=== PATIENT | female | born 1945 | race Caucasian/White ===

== ENCOUNTER 2017-01-10 14:18 | Emergency (ER) | payer MEDICARE, MEDICAID ==
[2017-01-10 14:31] VITALS: BP 155/92
--- NOTE | 2017-01-10 15:12 | ERNOTE ---
Psychological HPI - Date Date of Service: 01/10/17 - General Chief Complaint: Anxiety Source: Reports: patient Exam Limitations: Reports: no limitations - Immun/Allergies/Home Medications Allergies/Adverse Reactions: Allergies bee pollen Allergy (Severe, Verified 01/10/17 14:31) HIVES, ANGIOEDEMA poison josefa extract [Poison Josefa Extract] Allergy (Unknown, Verified 01/10/17 14: 31) Home Medications: HOME MEDICATIONS Multivit-Min/FA/Lycopene/Lut [Centrum Silver Tablet] 1 each PO DAILY 09/29/13 [ Last Taken Unknown] Simvastatin 40 mg PO HS 09/29/13 [Last Taken Unknown] Albuterol Sulfate [Proair Hfa] 2 puff IH QID PRN 07/01/15 [Last Taken Unknown] Ascorbic Acid [Vitamin C] 500 mg PO DAILY 07/01/15 [Last Taken Unknown] Black Cohosh 540 mg PO DAILY 07/01/15 [Last Taken Unknown] Calcium Carbonate/Vitamin D3 [Calcium 600 + Vit D3 800 Tab] 1 each PO DAILY [Last Taken Unknown] EPINEPHrine [Epipen 2-Miguel] 0.3 mg IM ONCE PRN 07/01/15 [Last Taken Unknown] Esomeprazole Magnesium [Nexium] 40 mg PO DAILY 07/01/15 [Last Taken Unknown] Meclizine HCl [Antivert] 25 mg PO TID PRN 07/01/15 [Last Taken Unknown] PARoxetine HCL [Paxil] 10 mg PO DAILY 07/01/15 [Last Taken Unknown] HYDROcodone/ACETAMINOPHEN [[place] 5-325] 1 tab PO Q6H PRN #20 tab 09/30/15 [Last Taken Unknown] Losartan Potassium [Cozaar] 50 mg PO BID 11/14/15 [Last Taken Unknown] Escitalopram Oxalate [Lexapro] 10 mg PO DAILY #30 tab 01/10/17 [Last Taken Unknown] - History of Present Illness Narrative: Pt. comes in with c/o anxiety for two weeks. Pt. denies any SOB, CP, NVD, but does state that she always feels hungry and finds herself eating more when she is stressed out over a friend that she is trying to help right now. Pt. denies any NVD or abdominal pain, fevers, alleviating factors, or prehospital treatment but does state that she has been on medications in the past for anxiety and she states that she would take one and it would calm her down but has not been on anything daily. Time Seen by Provider: 01/10/17 14:37 Review of Systems - Review of Systems Constitutional: Present: no symptoms reported. Absent: recent illness, fever, chills, weakness, fatigue, malaise EYE: Present: no symptoms reported ENT: Present: no symptoms reported Respiratory: Present: no symptoms reported. Absent: shortness of breath, cough , wheezing Cardiology: Present: no symptoms reported. Absent: chest pain, palpitations, claudication Gastrointestinal/Abdominal: Present: no symptoms reported. Absent: nausea, vomiting, diarrhea, abdominal pain Genitourinary: Present: no symptoms reported Musculoskeletal: Present: no symptoms reported. Absent: back pain, joint pain Skin: Present: no symptoms reported Neurological: Present: anxiety. Absent: headache, dizziness/light-headedness, numbness, tingling All Other Systems: All systems neg except as marked - Patient's Past Medical History Patient History - Medical: GERD Patient History - Cardiac/Respiratory: Hypertension, Hyperlipidemia Patient History - Cancer: No Hx of Cancer Patient History - Surgical Procedures: Tubal Ligation Patient History - Other: None LMP (females 10-50): Menopausal - Family History Father Family History - Medical: Family History - Cardiac/Respiratory: Coronary Heart Disease, Hypertension Sister Family History - Medical: Diabetes Type 2 Family History - Cardiac/Respiratory: Hypertension Mother Family History - Medical: - Social History Living Situations: home Abuse History: No History of abuse Psych History: Hx of Anxiety - Immunizations Immunizations Up to Date: Yes Hx Pneumococcal Vaccination: No History of Influenza Vaccine: Yes Psychological Exam - Exam General Appearance: Present: wd/wn, alert, no apparent distress Head Exam: Present: normal inspection, no evidence of injury, no tenderness w palpation Neurological: Present: alert, normal mood/affect, calm, supervisor public message service II-XII nml as tested , oriented x 3 Thoughts/Hallucinations: Present: normal thought pattern, no apparent hallucination Behavior/Eye Contact/Speech: Present: cooperative, good eye contact, normal speech Eye Exam: Normal inspection: bilateral, PERRL: bilateral, EOMI: bilateral Ears, Nose, Throat: Present: normal ENT inspection, normal pharynx Neck: Present: normal inspection, nontender. Absent: lymphadenopathy (R), lymphadenopathy (L) Respiratory: Present: no respiratory distress, normal breath sounds, no accessory muscle use, chest nontender, lungs clear Cardiovascular/Chest: Present: regular rate, rhythm, no murmur, normal peripheral pulses Gastrointestinal/Abdominal: Present: normal bowel sounds, nontender, nondistended, soft, no organomegaly. Absent: McBurney sign, Obturator sign, Yeh sign, Psoas sign, mass Back Exam: Present: normal inspection Extremity Exam: Present: normal inspection Skin Exam: Present: normal color, warm/dry, no cyanosis. Absent: pallor, skin rash ED Progress - Vital Signs Patient's Vital Signs:: I have reviewed the patient's vital signs. Vital Signs: Vital Signs 01/10/17 01/10/17 14:26 14:42 Temperature 36.4 C L Pulse Rate 73 73 Respiratory 15 Rate Blood Pressure 155/92 O2 Sat by Pulse 96 Oximetry - Progress/Reassessment Chief Complaint: Anxiety Progress:: Unchanged Departure Clinical Impression: anxiety with chronic depression - Departure Disposition: Home self-care Condition: Good Instructions: Dysphoria, Binge-Eating Disorder Additional Instructions: Please follow meal plan as discussed and take lexapro everyday and follow up with psychiatry office for further treatment. Referrals: Brendan Martin MD [Primary Care Provider] - Prescriptions: Escitalopram Oxalate [Lexapro] 10 mg PO DAILY #30 tab
== END 2017-01-10 15:03 | disposition home or self-care (01) ==
LOC: ER 14:18
DX: F41.8 Other specified anxiety disorders (principal)

== ENCOUNTER 2017-03-11 11:10 | Emergency (ER) | payer MEDICARE, MEDICAID ==
--- NOTE | 2017-03-11 12:28 | ERNOTE ---
Psychological HPI - Date Date of Service: 03/11/17 - General Chief Complaint: Anxiety Source: Reports: patient Exam Limitations: Reports: no limitations - Immun/Allergies/Home Medications Allergies/Adverse Reactions: Allergies bee pollen Allergy (Severe, Verified 03/11/17 11:26) HIVES, ANGIOEDEMA poison josefa extract [Poison Josefa Extract] Allergy (Unknown, Verified 03/11/17 11: 26) Home Medications: HOME MEDICATIONS Simvastatin 40 mg PO HS 09/29/13 [Last Taken Unknown] EPINEPHrine [Epipen 2-Miugel] 0.3 mg IM ONCE PRN 07/01/15 [Last Taken Unknown] Losartan Potassium [Cozaar] 100 mg PO BID 11/14/15 [Last Taken Unknown] ALPRAZolam [Xanax] 0.25 mg PO TID PRN #16 tab 03/06/17 [Last Taken Unknown] Aspirin [Aspirin Chewable] 81 mg PO DAILY 03/06/17 [Last Taken Unknown] Bupropion HCl [Bupropion HCl ER] 150 mg PO 03/06/17 [Last Taken Unknown] clonazePAM [Klonopin] 0.5 mg PO HS 03/06/17 [Last Taken Unknown] hydrOXYzine HCL [Atarax] 25 mg PO HS 03/06/17 [Last Taken Unknown] Citalopram Hydrobromide [Citalopram HBr] 40 mg PO 03/11/17 [Last Taken Unknown] busPIRone HCL [Buspar] 5 mg PO BID #60 tablet 03/11/17 [Last Taken Unknown] - History of Present Illness Narrative: Pt. comes in with c/o increased anxiety for three days. Pt. states that she saw another provider three days ago and that she put her on another medication and that it did not improve the symptoms. Pt. denies any alleviating or aggravating factors. Pt. denies any prehospital treatment. Time Seen by Provider: 03/11/17 11:38 Arrived by: Reports: private car Onset/duration: Reports: better Intent: Reports: no prior thoughts-suicide, other - no suicidal ideation Situational Problems: Reports: significant other, work Associated Symptoms: Reports: agitated. Denies: suicidal thoughts, specific plan, made attempt Prior Treament: Reports: recently seen, treated by physician, similar symptoms before Review of Systems - Review of Systems Constitutional: Present: no symptoms reported. Absent: fever, chills, weakness , fatigue, malaise EYE: Present: no symptoms reported. Absent: double vision, vision changes ENT: Present: no symptoms reported. Absent: nose pain, nose congestion, nasal drainage, sore throat, throat swelling Respiratory: Present: no symptoms reported. Absent: shortness of breath, cough , wheezing Cardiology: Present: no symptoms reported. Absent: chest pain, edema Gastrointestinal/Abdominal: Present: no symptoms reported. Absent: nausea, vomiting, diarrhea Genitourinary: Present: no symptoms reported. Absent: frequency, decreased urinary output Musculoskeletal: Present: no symptoms reported. Absent: back pain, joint pain Skin: Present: no symptoms reported. Absent: rash, change in hair/nails Neurological: Present: no symptoms reported. Absent: headache, dizziness/light- headedness, numbness, tingling Endocrine: Present: no symptoms reported. Absent: intolerance to cold, increased hunger, increased thirst, increased urine All Other Systems: All systems neg except as marked - Patient's Past Medical History Patient History - Medical: Anxiety, Depression, GERD Patient History - Cardiac/Respiratory: Hypertension, Hyperlipidemia Patient History - Cancer: No Hx of Cancer Patient History - Surgical Procedures: Tubal Ligation Patient History - Other: None - Family History Father Family History - Medical: Family History - Cardiac/Respiratory: Coronary Heart Disease, Hypertension Sister Family History - Medical: Diabetes Type 2 Family History - Cardiac/Respiratory: Hypertension Mother Family History - Medical: - Social History Living Situations: alone Abuse History: No History of abuse Psych History: Hx of Anxiety, Hx of Depression Smoking Status: Never smoker Alcohol Use: none Drug Use: none - Immunizations Immunizations Up to Date: Yes Hx Pneumococcal Vaccination: No History of Influenza Vaccine: Yes Psychological Exam - Exam General Appearance: Present: wd/wn, alert, no apparent distress Head Exam: Present: normal inspection, no evidence of injury Neurological: Present: alert, calm, director of programming II-XII nml as tested, oriented x 3, anxious Behavior/Eye Contact/Speech: Present: cooperative, good eye contact, normal speech ENT Exam normal except (see below): Yes Respiratory: Present: no respiratory distress, normal breath sounds, no accessory muscle use, chest nontender, lungs clear Cardiovascular/Chest: Present: regular rate, rhythm, no murmur, normal peripheral pulses Extremity Exam: Present: normal inspection Skin Exam: Present: normal color, warm/dry, no cyanosis ED Progress - Date and Time Seen: Date and Time: 03/11/17 13:43 Pt. much improved on Buspar and am going to send urine for culture but not start pt. on any abx yet as micro was dirty catch. Will have pt. stop alprazolam. - Results and Orders Patient's Lab Results:: I have reviewed the patient's lab results. - Vital Signs Patient's Vital Signs:: I have reviewed the patient's vital signs. Vital Signs: Vital Signs 03/11/17 11:16 Pulse Rate 78 Respiratory 20 Rate Blood Pressure 125/77 O2 Sat by Pulse 98 Oximetry - Progress/Reassessment Chief Complaint: Anxiety Progress:: Improved Departure Clinical Impression: Anxiety - Departure Disposition: Home self-care Condition: Good Instructions: Panic Attacks, [id number] Additional Instructions: Please stop alprazolam and follow up with psychiatrist as discussed. Referrals: Brendan Martin MD [Primary Care Provider] - Prescriptions: busPIRone HCL [Buspar] 5 mg PO BID #60 tablet
[2017-03-11] MEDS ORDERED: busPIRone HCL 5 MG TABLET PO PRN (12:32)
[2017-03-11 12:47] LABS: Hematocrit 42.9 % (37.0-47.0); Hemoglobin 14.1 gm/dL (12.5-16.0); Mean Cell Volume 93.3 fl (78-100); Mean Corpuscular Hemoglobin 30.7 pg (27-31); Mean Corpuscular Hgb Conc 32.9 g/dl (32-36); Mean Platelet Volume 9.1 fl (6.0-9.5); Neutrophil # 6.6 K/mm3 (1.3-6.0); Neutrophil % 74.6 % (42-75.0); Platelet Count 267 K/mm3 (150-450); Red Cell Distribution Width 12.6 % (11.5-14.0); White Blood Count 8.9 K/mm3 (4.0-10.5)
[2017-03-11 13:06] LABS: Urine Bilirubin Negative (NEGATIVE); Urine Blood Negative /ul (NEGATIVE); Urine Ketone Negative (NEGATIVE); Urine Nitrite Negative (NEGATIVE); Urine Protein Negative (NEGATIVE); Urine Specific Gravity 1.015 SP.GR. (1.005-1.010); Urine Urobilinogen Normal (NORMAL)
[2017-03-11 13:15] LABS: Albumin * 3.7 gm/dl (3.4-5.0); Anion Gap 8.8 mmol/L (6.8-13.8); BUN/Creatinine Ratio 26.9 (9.0-21.6); Bilirubin, Total 0.4 mg/dL (0.0-1.1); Ca. Corrected For Albumin 9.3 mg/dL (8.4-10.2); Calcium * 9.4 mg/dL (7.9-10.9); Potassium 3.8 mmol/L (3.4-4.6); TSH * 2.283 uIU/mL (0.358-3.74); Total Protein 7.5 gm/dL (6.2-8.2)
[2017-03-11 13:21] LABS: Urine Appearance Slightly Cloudy; Urine Bacteria TRACE; Urine Color Yellow; Urine RBC None Seen /hpf (0-5); Urine WBC 0-5 /hpf (0-5)
[2017-03-11 13:36] VITALS: BP 144/79
== END 2017-03-11 13:57 | disposition home or self-care (01) ==
LOC: ER 11:10
DX: F41.9 Anxiety disorder, unspecified (principal); I10 Essential (primary) hypertension; E78.5 Hyperlipidemia, unspecified; F32.9 Major depressive disorder, single episode, unspecified; Z79.899 Other long term (current) drug therapy

== ENCOUNTER 2017-03-25 17:49 | Emergency (ER) | payer MEDICARE, MEDICAID ==
[2017-03-25 17:55] VITALS: BP 149/75
--- NOTE | 2017-03-25 18:17 | ERNOTE ---
Trauma/Assault HPI - Narrative Date of Service: 03/25/17 - General Stated Complaint: FALL - HEAD LAC Time Seen by Provider: 03/25/17 18:00 Source: patient Exam Limitations: no limitations - Immun/Allergies/Home Medications Immunizations: IMMUNIZATION HX Immunizations Up to Date Yes History of Influenza Vaccine Yes Hx Pneumococcal Vaccination No Allergies/Adverse Reactions: Allergies bee pollen Allergy (Severe, Verified 03/11/17 11:26) HIVES, ANGIOEDEMA poison josefa extract [Poison Josefa Extract] Allergy (Unknown, Verified 03/11/17 11: 26) Home Medications: HOME MEDICATIONS Simvastatin 40 mg PO HS 09/29/13 [Last Taken Unknown] EPINEPHrine [Epipen 2-Miguel] 0.3 mg IM ONCE PRN 07/01/15 [Last Taken Unknown] Losartan Potassium [Cozaar] 100 mg PO BID 11/14/15 [Last Taken Unknown] ALPRAZolam [Xanax] 0.25 mg PO TID PRN #16 tab 03/06/17 [Last Taken Unknown] Aspirin [Aspirin Chewable] 81 mg PO DAILY 03/06/17 [Last Taken Unknown] Bupropion HCl [Bupropion HCl ER] 150 mg PO DAILY 03/06/17 [Last Taken Unknown] clonazePAM [Klonopin] 0.5 mg PO HS 03/06/17 [Last Taken Unknown] hydrOXYzine HCL [Atarax] 25 mg PO HS 03/06/17 [Last Taken Unknown] Citalopram Hydrobromide [Citalopram HBr] 40 mg PO DAILY 03/11/17 [Last Taken Unknown] Albuterol Sulfate [Proair Hfa] 8.5 gm IH DAILY 03/25/17 [Last Taken Unknown] Amlodipine Besylate 5 mg PO DAILY 03/25/17 [Last Taken Unknown] Cetirizine HCl [Zyrtec] 10 mg PO DAILY 03/25/17 [Last Taken Unknown] Escitalopram Oxalate [Lexapro] 20 mg PO DAILY 03/25/17 [Last Taken Unknown] Esomeprazole Magnesium [Nexium] 40 mg PO DAILY 03/25/17 [Last Taken Unknown] Meclizine HCl 25 mg PO DAILY 03/25/17 [Last Taken Unknown] - History of Present Illness Date (Duration): 03/25/17 Time (Timing): 17:30 Narrative: Pt is a 71 year old female who presented via EMS following a fall resulting in a small scalp laceration. Not on anticoagulation. She denies dizziness or lightheadedness prior to fall, no LOC. Upon arrival to ER bleeding has completely resolved, pt is completely neurologically intact. Last tetanus was Location Occurred: Reports: home Pain Location: Reports: head Method of Injury: Reports: fall Severity: mild Loss of Consciousness: Reports: no loss of consciousness, remembers the event, remembers coming to hospital. Denies: brief (seconds), prolonged (minutes) Associated Symptoms - Trauma: Denies: headache, confusion, dizziness, lightheadedness, neck pain, chest pain, nausea, vomiting Review of Systems - Review of Systems Constitutional: Present: no symptoms reported Respiratory: Absent: shortness of breath, cough Cardiology: Absent: chest pain, palpitations, syncope Musculoskeletal: Absent: back pain, neck pain Skin: Present: other - 1 cm laceration to right parietal scalp Neurological: Absent: dizziness/light-headedness, weakness, numbness, tingling - Patient's Past Medical History Patient History - Medical: Anxiety, Depression, GERD Patient History - Cardiac/Respiratory: Hypertension, Hyperlipidemia Patient History - Cancer: No Hx of Cancer Patient History - Surgical Procedures: Tubal Ligation Patient History - Other: None LMP (females 10-50): Menopausal - Family History Father Family History - Medical: Family History - Cardiac/Respiratory: Coronary Heart Disease, Hypertension Sister Family History - Medical: Diabetes Type 2 Family History - Cardiac/Respiratory: Hypertension Mother Family History - Medical: - Social History Living Situations: home Abuse History: No History of abuse Psych History: Hx of Anxiety, Hx of Depression Smoking Status: Never smoker Alcohol Use: none Drug Use: none - Immunizations Immunizations Up to Date: Yes Hx Pneumococcal Vaccination: No History of Influenza Vaccine: Yes Physical Exam - Physical Exam General Appearance: Present: wd/wn, alert, no apparent distress Head Exam: Present: lacerations - 1cm right parietal scalp laceration, tenderness Eye Exam: Normal inspection: bilateral Neck: Present: normal inspection, nontender Respiratory: Present: no respiratory distress, no accessory muscle use Cardiovascular/Chest: Present: normal peripheral pulses Extremity Exam: Present: normal inspection Neurological Exam: Present: alert, oriented, normal mood/affect, no motor/ sensory deficits Skin Exam: Present: normal color, warm/dry, other - see laceration Detailed Trauma Exam Best Eye Response (Annette): (4) open spontaneously Best Verbal Response (Talmage): (5) oriented Best Motor Response (Talmage): (6) obeys commands Talmage Total: 15 - C-Spine cleared by: Neg history & exam - T, L-Spine cleared by: Neg hx and exam ED Progress - Vital Signs Patient's Vital Signs:: I have reviewed the patient's vital signs. Vital Signs: Vital Signs 03/25/17 03/25/17 03/25/17 17:50 17:54 18:01 Pulse Rate 78 78 78 Respiratory 15 15 Rate Blood Pressure 149/75 149/75 O2 Sat by Pulse 95 95 Oximetry - CT/Ultrasound CT/Ultrasound Narrative: CT Head 03/25/17 -no evidence of acute intracranial process - Progress/Reassessment Chief Complaint: Fall Progress:: Improved Procedures scalp Length of Repair/Wound (cm): 1 Wound's Depth/Shape: into subcutaneous, linear Wound Explored: clean, to base, in bloodless field, no foreign body Wound Intervention: irrigated w/saline Wound Repaired With: Dermabond Complications: Pt molly procedure well Departure Clinical Impression: Closed head injury Qualifiers: Encounter type: initial encounter Qualified Code(s): S09.90XA - Unspecified injury of head, initial encounter Scalp laceration Qualifiers: Encounter type: initial encounter Qualified Code(s): S01.01XA - Laceration without foreign body of scalp, initial encounter - Departure Disposition: Home self-care Condition: Good Instructions: Tissue Adhesive Wound Care, Head Injury, Adult, [id number] Additional Instructions: Take Tylenol PRN for pain, may ice area. Keep area clean and dry. Do not pick at adhesion. Do not wash hair for 24hr. Critical Care Time - Critical Care Critical Time Spent:: No
== END 2017-03-25 18:56 | disposition home or self-care (01) ==
LOC: ER 17:49
PROC: 0JQ00ZZ Repair Scalp Subcutaneous Tissue and Fascia, Open Approach (ICD-10-PCS; principal; 2017-03-25)
DX: W19.XXXA Unspecified fall, initial encounter; K21.9 Gastro-esophageal reflux disease without esophagitis; F32.9 Major depressive disorder, single episode, unspecified; S09.90XA Unspecified injury of head, initial encounter; R40.2410 Glasgow coma scale score 13-15, unspecified time; Y92.009 Unspecified place in unspecified non-institutional (private) residence as the place of occurrence of the external cause; F41.9 Anxiety disorder, unspecified; E78.5 Hyperlipidemia, unspecified; S01.01XA Laceration without foreign body of scalp, initial encounter; I10 Essential (primary) hypertension

== ENCOUNTER 2017-04-15 17:29 | Emergency (ER) | payer MEDICARE, MEDICAID ==
--- NOTE | 2017-04-15 18:06 | ERNOTE ---
Abdominal HPI - Narrative Date of Service: 04/15/17 - General Chief Complaint: Abdominal Pain Time Seen by Provider: 04/15/17 17:46 Source: patient Exam Limitations: no limitations - Immun/Allergies/Home Medications Immunizatons: IMMUNIZATION HX Immunizations Up to Date No History of Influenza Vaccine Yes Hx Pneumococcal Vaccination Yes Allergies/Adverse Reactions: Allergies bee pollen Allergy (Severe, Verified 03/11/17 11:26) HIVES, ANGIOEDEMA poison josefa extract [Poison Josefa Extract] Allergy (Unknown, Verified 03/11/17 11: 26) Home Medications: HOME MEDICATIONS Simvastatin 40 mg PO HS 09/29/13 [Last Taken Unknown] EPINEPHrine [Epipen 2-Miguel] 0.3 mg IM ONCE PRN 07/01/15 [Last Taken Unknown] Losartan Potassium [Cozaar] 100 mg PO BID 11/14/15 [Last Taken Unknown] ALPRAZolam [Xanax] 0.25 mg PO TID PRN #16 tab 03/06/17 [Last Taken Unknown] Aspirin [Aspirin Chewable] 81 mg PO DAILY 03/06/17 [Last Taken Unknown] Bupropion HCl [Bupropion HCl ER] 150 mg PO DAILY 03/06/17 [Last Taken Unknown] clonazePAM [Klonopin] 0.5 mg PO HS 03/06/17 [Last Taken Unknown] hydrOXYzine HCL [Atarax] 25 mg PO HS 03/06/17 [Last Taken Unknown] Citalopram Hydrobromide [Citalopram HBr] 40 mg PO DAILY 03/11/17 [Last Taken Unknown] Albuterol Sulfate [Proair Hfa] 8.5 gm IH DAILY 03/25/17 [Last Taken Unknown] Amlodipine Besylate 5 mg PO DAILY 03/25/17 [Last Taken Unknown] Cetirizine HCl [Zyrtec] 10 mg PO DAILY 03/25/17 [Last Taken Unknown] Escitalopram Oxalate [Lexapro] 20 mg PO DAILY 03/25/17 [Last Taken Unknown] Esomeprazole Magnesium [Nexium] 40 mg PO DAILY 03/25/17 [Last Taken Unknown] Meclizine HCl 25 mg PO DAILY 03/25/17 [Last Taken Unknown] Cefuroxime Axetil [Ceftin] 250 mg PO Q12H #20 tab 04/15/17 [Last Taken Unknown] - History of Present Illness Narrative: Patient presents to the ED with off an on abdominal cramping for the last week to week and a half. No vomiting or diarrhea. No dysuria. Nothing seems to really bring this on. No blood in stool. The episodes are supra pubic area when they come on. Right now not having pain. She is not sure exactly how long they last but she last had an episode of pain this afternoon. Timing: intermittent Quality: moderate Activities at Onset: none Modifying Factors - (Improves): Present: other - nothing Modifying Factors - (Worsens): Present: other - nothing Associated Symptoms: Absent: headache, back pain, chest pain, diarrhea-gross blood, fever/chills, nausea, vomiting, loss of appetite, shortness of breath, swelling/mass in abdomen Prior Treatment: Absent: recently seen Review of Systems - Review of Systems Constitutional: Absent: fever ENT: Present: no symptoms reported Respiratory: Absent: shortness of breath Cardiology: Absent: chest pain Gastrointestinal/Abdominal: Present: See HPI Genitourinary: Absent: dysuria Musculoskeletal: Absent: back pain Skin: Absent: rash Neurological: Absent: weakness - Patient's Past Medical History Patient History - Medical: Anxiety, Depression, GERD Patient History - Cardiac/Respiratory: Hypertension, Hyperlipidemia Patient History - Cancer: No Hx of Cancer Patient History - Surgical Procedures: Tubal Ligation Patient History - Other: None LMP (females 10-50): Menopausal - Family History Father Family History - Medical: Family History - Cardiac/Respiratory: Coronary Heart Disease, Hypertension Sister Family History - Medical: Diabetes Type 2 Family History - Cardiac/Respiratory: Hypertension Mother Family History - Medical: - Social History Living Situations: home Abuse History: No History of abuse Psych History: Hx of Anxiety, Hx of Depression Smoking Status: Never smoker Alcohol Use: sober Drug Use: none - Immunizations Immunizations Up to Date: No Hx Pneumococcal Vaccination: Yes History of Influenza Vaccine: Yes Physical Exam - Physical Exam General Appearance: Present: alert, no apparent distress Head Exam: Present: normal inspection, no evidence of injury Eye Exam: Normal inspection: bilateral, PERRL: bilateral Ears, Nose, Throat: Present: normal ENT inspection Neck: Present: normal inspection Respiratory: Present: no respiratory distress, normal breath sounds, no accessory muscle use, lungs clear Cardiovascular/Chest: Present: regular rate, rhythm, normal peripheral pulses Gastrointestinal/Abdominal: Present: normal bowel sounds, nontender, soft, no organomegaly. Absent: tenderness, abnormal bowel sounds, guarding, rebound Back Exam: Absent: CVA tenderness (R), CVA tenderness (L) Extremity Exam: Present: normal range of motion Neurological Exam: Present: alert, no motor/sensory deficits Skin Exam: Present: normal color, warm/dry ED Progress - Results and Orders Patient's Lab Results:: I have reviewed the patient's lab results. - Vital Signs Patient's Vital Signs:: I have reviewed the patient's vital signs. Vital Signs: Vital Signs 04/15/17 17:46 Temperature 36.4 C L Pulse Rate 64 Respiratory 17 Rate Blood Pressure 139/86 O2 Sat by Pulse 96 Oximetry - Progress/Reassessment Chief Complaint: Abdominal Pain Progress Note-Subjective: 04/15/17 19:01 UTI noted. No suggestion of sepsis or toxicity or kidney stone/pyelo. She is stable, non-toxic, no distress. she is requesting to go home. I discussed warning signs and reasons to return as well as the need for close f/u. Departure Clinical Impression: UTI (urinary tract infection) - Departure Disposition: Home self-care Condition: Stable Instructions: Urinary Tract Infection, Adult, [id number] Additional Instructions: Rest. Fluids. Antibiotics as directed. Follow-up with your primary doctor in 3 days for a re-check. Return for fever, vomiting, flank pain or if your condition worsens or changes in any way. Referrals: Brendan Martin MD [Primary Care Provider] - Prescriptions: Cefuroxime Axetil [Ceftin] 250 mg PO Q12H #20 tab
[2017-04-15 18:17] LABS: Hematocrit 39.8 % (37.0-47.0); Hemoglobin 13.3 gm/dL (12.5-16.0); Mean Corpuscular Hemoglobin 31.1 pg (27-31); Mean Corpuscular Hgb Conc 33.4 g/dl (32-36); Mean Platelet Volume 9.2 fl (6.0-9.5); Neutrophil # 3.6 K/mm3 (1.3-6.0); Neutrophil % 56.1 % (42-75.0); Platelet Count 227 K/mm3 (150-450); Red Blood Count 4.28 M/mm3 (4.2-5.4); Red Cell Distribution Width 12.3 % (11.5-14.0); White Blood Count 6.4 K/mm3 (4.0-10.5)
[2017-04-15 18:27] LABS: Urine Bilirubin Negative (NEGATIVE); Urine Blood Negative /ul (NEGATIVE); Urine Ketone Negative (NEGATIVE); Urine Nitrite Negative (NEGATIVE); Urine Protein Negative (NEGATIVE); Urine Specific Gravity >=1.030 SP.GR. (1.005-1.010); Urine Urobilinogen Normal (NORMAL)
[2017-04-15 18:31] LABS: Albumin * 3.6 gm/dl (3.4-5.0); Anion Gap 7.6 mmol/L (6.8-13.8); Bilirubin, Total 0.4 mg/dL (0.0-1.1); Ca. Corrected For Albumin 9.1 mg/dL (8.4-10.2); Calcium * 9.1 mg/dL (7.9-10.9); Carbon Dioxide 33.1 mmol/L (24-32.6); Potassium 3.7 mmol/L (3.4-4.6); Total Protein 7.2 gm/dL (6.2-8.2)
[2017-04-15 18:44] LABS: Urine Appearance Cloudy; Urine Bacteria 1+; Urine Color Yellow; Urine RBC None Seen /hpf (0-5); Urine WBC 25-50 /hpf (0-5)
[2017-04-15 20:37] VITALS: BP 140/78
== END 2017-04-15 19:11 | disposition home or self-care (01) ==
LOC: ER 17:29
DX: N39.0 Urinary tract infection, site not specified (principal)